=== PATIENT | female | born 1990 | race Caucasian/White ===

== ENCOUNTER 2018-12-09 22:58 | Emergency (ER) | payer OTHER ==
[~2018-12-09] VITALS: Ht 170.2 cm; Wt 59.0 kg
[2018-12-09] MEDS ORDERED: ABILIFY2 MG ORAL (23:05)
[2018-12-09] MEDS ORDERED: BUPROPION XL300 MG ORAL (23:05)
[2018-12-09] MEDS ORDERED: CYMBALTA60 MG ORAL (23:05)
--- NOTE | 2018-12-09 23:05 | NUR ---
ED Nurse Note: PATIENT AMBULATED TO ED C/O RIGHT FOREARM BRUISING. 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 PAIN AND BRUISING CONTINUES. Pt is AO x 4times, VSS, on room air no distress. ERMD seen Pt at bedside.
[2018-12-09 23:47] VITALS: BP 126/82
--- NOTE | 2018-12-09 23:49 | NUR ---
ED Nurse Note: X ray at bedside.
[2018-12-10] MEDS ORDERED: TYLENOL EXTRA500 MG ORAL (00:08)
[2018-12-10 00:19] VITALS: BP 126/82
--- NOTE | 2018-12-10 00:20 | NUR ---
ER DISCHARGE NOTE: Patient is cleared to be discharged per ERMD, pt is aox4, on room air, with stable vital signs. pt was given dc and prescription instructions, pt was able to verbalize understanding, pt id band removed without complications. pt is able to ambulate with steady gait. pt took all belongings.
--- NOTE | 2018-12-10 00:49 | Emergency Room Report ---
History of Present Illness General Chief Complaint: Upper Extremity Injury Source: Patient Present Illness HPI 28-year-old female presents ED for evaluation. States there is bruising and pain to her right forearm x4 days. States it was injured while garage door closed on her arm. States that there was initially some mild bruising which is gotten progressively worse. Pain is throbbing, 5 out of 10, nonradiating. Denies any other injuries. No other aggravating relieving factors. Denies any other associated symptoms Allergies: Coded Allergies: No Known Allergies (Unverified , 12/09/18) Patient History Past Medical History: psych hx Past Surgical History: none Pertinent Family History: none Social History: Denies: smoking, alcohol use, drug use Last Menstrual Period: 12/05/18 Now: No Immunizations: UTD Reviewed Nursing Documentation: PMH: Agreed; PSxH: Agreed Nursing Documentation-PMH Past Medical History: No History, Except For History Of Psychiatric Problem: Yes - ANXIETY, DEPRESSION Review of Systems All Other Systems: negative except mentioned in HPI Physical Exam Vital Signs Date Time Temp Pulse Resp B/P (MAP) Pulse Ox O2 Delivery O2 Flow Rate FiO2 12/09/18 23:01 98.2 76 14 119/82 (94) 100 Room Air Sp02 EP Interpretation: reviewed, normal General Appearance: no apparent distress, alert, GCS 15, non-toxic Head: normocephalic Eyes: bilateral eye normal inspection, bilateral eye PERRL ENT: normal ENT inspection Neck: normal inspection Respiratory: normal inspection Cardiovascular #1: normal inspection Gastrointestinal: normal inspection Rectal: deferred Genitourinary: no CVA tenderness Musculoskeletal: back normal, gait/station normal, normal range of motion Neurologic: alert, oriented x3, responsive, motor strength/tone normal, sensory intact, speech normal Psychiatric: normal inspection Skin: other - bruising to volar R forearm Lymphatic: normal inspection Medical Decision Making Diagnostic Impression: Primary Impression: Contusion, forearm Qualified Codes: S50.11XA - Contusion of right forearm, initial encounter ER Course Hospital Course 28-year-old F presents to ED complaining of bruising/pain to R forearm Differential diagnoses include: Fracture, dislocation, sprain, contusion Clinical course Patient placed on stretcher. After initial history and physical, I ordered xrays of R forearm. patient declined pain meds Xrays prelim read shows no acute fracture/dislocation. discussed findings with patient. I explained that the bruising will resolve with time. Continue ice, anti-inflammatories. safe for discharge with close outpatient follow-up. I will provide referrals Diagnosis - forearm contusion Stable and discharged to home with prescription for tylenol. apply ice, keep elevated. weight bear as tolerated. Followup with PMD/ortho. Return to ED if symptoms recur or worsen Other X-Ray Diagnostic Results Other X-Ray Diagnostic Results : X-Ray ordered: R forearm # of Views/Limited Vs Complete: 2 View Indication: Pain EP Interpretation: Yes Interpretation: no dislocation, no soft tissue swelling, no fractures Impression: No acute disease Electronically Signed by: Electronically signed by Hayes Cornejo MD Last Vital Signs Date Time Temp Pulse Resp B/P (MAP) Pulse Ox O2 Delivery O2 Flow Rate FiO2 12/10/18 00:19 98.5 74 16 126/82 100 Room Air Status: improved Disposition: HOME, SELF-CARE Condition: Stable Scripts Acetaminophen* (TYLENOL EXTRA STRENGTH*) 500 Mg Tablet 500 MG ORAL Q8H PRN for Prn Headache/Temp > 101, #30 TAB 0 Refills Prov: Hayes Cornejo MD 12/10/18 [facility]: [facility] Open 24 hour /7 days a week by Appointment Only [address] [facility] [id number] Patient Instructions: Contusion, [id number] Hayes Cornejo MD Dec 10, 2018 00:49
--- NOTE | 2018-12-10 14:58 | Diagnostic Imaging Report ---
Indications: Right forearm midshaft pain, bruising and swelling Technique: Two views of the right forearm Comparison: None Findings: No acute fractures. No dislocations. The joint spaces are preserved Impression: Negative
== END 2018-12-10 01:06 | disposition home or self-care (01) ==
LOC: EMR 23:19
DX: S50.11XA Contusion of right forearm, initial encounter (principal); W22.8XXA Striking against or struck by other objects, initial encounter; Y93.9 Activity, unspecified; Y92.9 Unspecified place or not applicable
CPT/HCPCS: 99283